=== PATIENT | female | born 1975 | race Hispanic/Latino ===

== ENCOUNTER 2016-12-27 09:20 | Emergency (ER) | payer OTHER ==
[~2016-12-27] VITALS: Ht 152.4 cm; Wt 71.7 kg
[~2016-12-27 09:20] MED LIST: ALBUTEROL0.09 MG/A1 INH; AMLODIPINE10 MG PO; AMOXIL500 MG PO; CARAFATE1 GM/10 ML PO; CHERATUSSIN AC120 ML PO; HYDRODIURIL 2525 MG PO; LISINOPRIL40 MG PO; PREDNISONE10 MG PO; ZITHROMAX Z-PA250 M1 PO
[2016-12-27 09:29] VITALS: BP 107/74
--- NOTE | 2016-12-27 10:18 | ED THROAT/DENTAL COMPLAINT ---
History of Present Illness General Chief Complaint: Sore Throat, Dental Pain Stated Complaint: SORE THROAT Source: patient Exam Limitations: no limitations Vital Signs & Intake/Output Vital Signs & Intake/Output Vital Signs Date Time Temp Pulse Resp B/P B/P Pulse O2 O2 Flow FiO2 Mean Ox Delivery Rate 12/27 0929 97.7 66 16 107/74 99 Room Air Allergies Coded Allergies: NO KNOWN ALLERGIES (07/22/15) Reconcile Medications Albuterol Sulfate (Albuterol Sulfate Hfa) 90 MCG HFA.AER.AD 2 PUFF INH Q4-6 PRN PRN SHORTNESS OF BREATH 90 MCG PER PUFF Amlodipine Besylate (Amlodipine) 10 MG TABLET 1 TAB PO DAILY HTN (Reported) Amoxicillin (Amoxil) 500 MG CAP 1 TAB PO TID PHARYNGITIS Amoxicillin/Potassium Clav (Augmentin 875-125 Tablet) 875 MG-125 MG TABLET 1 TAB PO BID PHARYNGITIS Azithromycin (Zithromax Z-Erasmo) 250 MG CAP 1 DP PO AD BRONCHITIS 2 the first day followed by 1 for days 2-5 GUAIFENESIN/CODEINE PHOSPHATE (Cheratussin AC Syrup) 100 MG-10 MG/5 ML LIQUID 5 ML PO Q6P PRN COUGH Hydrochlorothiazide (Hydrodiuril 25 MG Tab) 25 MG TABLET 1 TAB PO DAILY HTN ( Reported) Lisinopril 40 MG TABLET 1 TAB PO DAILY HTN (Reported) Methylprednisolone. (Medrol) 4 MG TAB.DS.PK 1 DP PO AD INFLAMMATION 6 on day 1 then reduce by one tablet daily until gone Prednisone 10 MG TABLET 0 TAB PO DAILY BRONCHITIS 3 TABS TWICE A DAY X 3 DAYS 2 TABS TWICE A DAY X 3 DAYS 1 TABS TWICE A DAY X 3 DAYS Sucralfate (Carafate) 1 GM/10 ML IVY 10 ML PO 4 TIMES/DAY GASTRITIS 1 hour before meals AND AT BEDTIME Triage Note: PT HERE WITH C/O SORE THROAT SINCE YESTERDAY. PT HAS BEEN RUNNING FEVERS SINCE LAST NIGHT Triage Nurses Notes Reviewed? yes Onset: Abrupt Duration: constant Timing: single episode today Injury Environment: home Severity: severe Severity Numbers: 8 : No Patient currently breastfeeds: No HPI: Patient is a 41-year-old female who presents emergent with a acute onset today of sore throat when she woke up this morning. Patient states that she has pain with swallowing however can tolerate. Has low-grade fever. Negative for cough. Denies any similar sick contacts. No medications given prior to arrival. (HAMIDA ROJO) Past History Travel History Traveled to [place] past 21 day No Medical History Any Pertinent Medical History? see below for history Neurological: NONE EENT: NONE Cardiovascular: hypertension Respiratory: NONE Gastrointestinal: NONE Hepatic: NONE Renal: nephrectomy Musculoskeletal: NONE Psychiatric: depression Endocrine: NONE Blood Disorders: NONE Cancer(s): NONE OIL WELL SERVICE OPERATOR/Reproductive: NONE Surgical History Surgical History: non-contributory Psychosocial History What is your primary language Malian Tobacco Use: Current Daily Use Daily Tobacco Use Amount/Type: => 5 Cigarettes daily ETOH Use: occasional use Illicit Drug Use: denies illicit drug use Family History Hx Contributory? No (HAMIDA ROJO) Review of Systems Review of Systems Constitutional: Reports: no symptoms. EENTM: Reports: see HPI, throat pain, throat swelling. Respiratory: Reports: see HPI. Cardiovascular: Reports: no symptoms. GI: Reports: no symptoms. Genitourinary: Reports: no symptoms. Musculoskeletal: Reports: no symptoms. Skin: Reports: no symptoms. Neurological/Psychological: Reports: no symptoms. Hematologic/Endocrine: Reports: no symptoms. Immunologic/Allergic: Reports: no symptoms. All Other Systems: Reviewed and Negative (HAMIDA ROJO) Physical Exam Physical Exam General Appearance: no apparent distress, alert, comfortable Mouth/Throat: normal mouth inspection, pharynx swelling, pharynx tenderness, tonsillar exudate Comments: Well-developed well-nourished person in no acute distress HEENT: extraocular motion intact, no nystagmus. Pupils equally round and reactive to light and accommodation. Nose is atraumatic. External auditory canal and Tympanic membranes clear. Neck: Supple, no lymphadenopathy, normal range of motion without pain or tenderness Back: Nontender, no CVA tenderness. Cardiovascular: Regular rate and rhythms no murmurs rubs or gallops, normal JVP Respiratory: Chest nontender. No respiratory distress.breath sounds clear to auscultation bilaterally Abdomen: Soft, nontender nondistended, no appreciable organomegaly. Normal bowel sounds. No ascites Extremity: No edema, no calf tenderness to palpation, normal and equal pulses. Neuro: Alert oriented x3, motor sensory normal, Skin: No appreciable rash on exposed skin, skin is warm and dry. Psych: Mood and affect is normal, memory and judgment is normal. Core Measures ACS in differential dx? No Severe Sepsis Present: No Septic Shock Present: No (HAMIDA ROJO) Progress Differential Diagnosis: epiglottitis, Ludwigs angina, meningitis, odontogenic abscess, pawan-tonsillar abscess, pharyngeal for. body, stomatitis/gingivitis, strep pharyngitis, tooth fracture Plan of Care: Orders Procedure Date/time Status THROAT CULTURE W/QUICK STREP 12/27 930 Complete Patient has positive strep and will be treated for pharyngitis (HAMIDA ROJO) Departure Departure Disposition: HOME OR SELF CARE Condition: Stable Clinical Impression Primary Impression: Streptococcal pharyngitis Referrals: TAYE CLARK,ADKOTAH Fritz (PCP/Family) Additional Instructions: As discussed begin the prescription of Augmentin as directed for the full course , begin the prescription Magic mouthwash for sore throat and Medrol Dosepak for inflammation. If symptoms worsen return to emergency room. Prescription is waiting a [facility] pharmacy. If no better in 3 days follow-up with her primary care doctor Departure Forms: Customer Survey General Discharge Information Prescriptions: Current Visit Scripts Amoxicillin/Potassium Clav (Augmentin 875-125 Tablet) 1 TAB PO BID #20 TAB Methylprednisolone. (Medrol) 1 DP PO AD #1 DP 6 on day 1 then reduce by one tablet daily until gone (HAMIDA ROJO) PA/SOFTWARE PROJECT LEAD Co-Sign Statement Statement: ED Attending supervision documentation- [] I saw and evaluated the patient. I have also reviewed all the pertinent lab results and diagnostic results. I agree with the findings and the plan of care as documented in the PA's/SOFTWARE PROJECT LEAD's documentation. [x] I have reviewed the ED Record and agree with the PA's/SOFTWARE PROJECT LEAD's documentation. [] Additions or exceptions (if any) to the PAs/SOFTWARE PROJECT LEAD's note and plan are summarized below: [] (DIANA CLARK,DEISY)
[2016-12-27] MEDS ORDERED: AUGMENTIN 875-1 EACH PO (10:29)
[2016-12-27] MEDS ORDERED: MEDROL4 M2 PO (10:29)
== END 2016-12-27 10:39 ==
LOC: ERH 09:20
DX: J02.0 Streptococcal pharyngitis (principal); Z72.0 Tobacco use